=== PATIENT | male | born 1960 | race Caucasian/White ===

== ENCOUNTER 2020-12-16 15:45 | Observation (INO) | payer BC ==
[2020-12-16 16:14] LABS: CHLORIDE,CL 99 mEq/L (98-106); SODIUM,NA 136 mEq/L (136-145)
[2020-12-16] MEDS ORDERED: Sodium Chloride 0.9% 10 ML Syringe FLUSH PRN (17:14)
[2020-12-16] MEDS ORDERED: Acetaminophen 325 MG Tab PO PRN (17:14)
[2020-12-16] MEDS ORDERED: Diltiazem 25 MG/5 ML SDV IVPUSH ONE (17:17)
[2020-12-16] MEDS ORDERED: Enoxaparin 40 MG/0.4 ML Syringe SUBCUT SCH (17:30)
[2020-12-16] MEDS ORDERED: Metoprolol Tartrate 50 MG Tab PO SCH (18:00)
[2020-12-16] MEDS: Acetaminophen 325 MG Tab PO SCH (19:41)
[2020-12-17] MEDS: Acetaminophen 325 MG Tab PO SCH (07:35)
[2020-12-17] MEDS ORDERED: [UNRECOGNIZED DRUG - OTHER] PO SCH (08:00)
[2020-12-17] MEDS ORDERED: METFORMIN HCL PO SCH (08:00)
[2020-12-17] MEDS ORDERED: Aspirin 325 MG Tab PO SCH (08:00)
[2020-12-17] MEDS ORDERED: DAPAGLIFLOZIN PO SCH (08:00)
[2020-12-17] MEDS ORDERED: Metoprolol Tartrate 50 MG Tab PO SCH (08:00)
[2020-12-17] MEDS ORDERED: levETIRAcetam 500 MG Tab PO SCH (08:00)
--- NOTE | 2020-12-19 22:42 | PCM.DCSUM1 ---
Discharge Summary - Hospital Course HPI Initial Comments: Kyle is a 60 yo male who was admitted to the hospital yesterday after being found to be in atrial flutter. Patient admitted he didn't feel well yesterday and was going to come into town to get his prescription medications. States he checked his blood pressure at the pharmacy and found his heart rate was really high. Was seen in clinic and admitted to the hospital. Diagnosis: Stroke: No - Discharge Data Discharge Date: 12/17/20 Discharge Disposition: Home, Self-Care 01 Condition: Good - Referral to Home Health Primary Care Physician: Meghan Fall PA-C - Discharge Diagnosis/Problem(s) (1) Atrial fib/flutter, transient SNOMED Code(s): 754530777 ICD Code: [id number] - Status: Acute - Patient Instructions Diet: Usual Diet as Tolerated, Diabetic Diet Activity: As Tolerated - Discharge Plan *PRESCRIPTION DRUG MONITORING PROGRAM REVIEWED*: Not Applicable Prescriptions/Med Rec: Aspirin 81 mg PO DAILY #30 tab.chew Metoprolol Succinate 50 mg PO DAILY #30 tab.er.24h Home Medications: Home Meds Dapagliflozin/Metformin HCl [Xigduo Xr 10 mg-1,000 mg Tab] 1 tab PO DAILY 02/14/19 [History] Multivitamin [Multivitamins] 1 tab PO DAILY 02/14/19 [History] Acetaminophen [Tylenol] 650 mg PO BID 12/16/20 [History] Cyanocobalamin (Vitamin B12) [Vitamin B12] 1,000 mcg PO DAILY 12/16/20 [History] amLODIPine Besylate [Amlodipine Besylate] 10 mg PO DAILY 12/16/20 [History] levETIRAcetam [Levetiracetam] 750 mg PO QAM 12/16/20 [History] Aspirin 81 mg PO DAILY #30 tab.chew 12/17/20 [Rx] Metoprolol Succinate 50 mg PO DAILY #30 tab.er.24h 12/17/20 [Rx] Oxygen Therapy Mode: Room Air Patient Handouts: Atrial Flutter - Discharge Summary/Plan Comment DC Time >30 min.: No Discharge Summary/Plan Comment: Kyle has been asymptomatic in the hospital. Patient was started on Metoprol Tartrate 50mg BID while in the hospital. Patient admits he has not felt any palpitations or signs of atrial flutter again. Discussed anticoagulation with Dr. Majano. Patient has had prior history of subdural hematomas and will refrain from anticoagulation. Echocardiogram preliminary did not show any embolus. Patient will be on aspirin 81mg daily. Will continue Metoprolol Succinate 50mg daily. Patient will follow up with Meghan Fall, primary provider, next week. - General Info Date of Service: 12/17/20 Functional Status: Reports: Tolerating Diet, Ambulating. Denies: New Symptoms - Review of Systems General: Reports: No Symptoms HEENT: Reports: No Symptoms Pulmonary: Denies: Shortness of Breath Cardiovascular: Denies: Chest Pain, Palpitations, Dyspnea on Exertion, Lightheadedness Gastrointestinal: Reports: No Symptoms Genitourinary: Reports: No Symptoms Musculoskeletal: Reports: No Symptoms Skin: Reports: No Symptoms Neurological: Reports: No Symptoms - Patient Data Vitals - Most Recent: Last Vital Signs Temp 97.6 F 12/17/20 12:00 Pulse 90 12/17/20 12:00 Resp 18 12/17/20 12:00 BP 135/76 12/17/20 12:00 Pulse Ox 97 12/17/20 12:00 Weight - Most Recent: 252 lb 14.4 oz Med Orders - Current: Current Medications Discontinued Medications Acetaminophen (Tylenol) 650 mg PO Q4H PRN PRN Reason: Pain (Mild 1-3)/fever Acetaminophen (Tylenol) 650 mg PO BID [facility] Last Admin: 12/17/20 07:35 Dose: 650 mg Documented by: Aspirin (Aspirin) 325 mg PO WITHBREAKFAST [facility] Last Admin: 12/17/20 07:35 Dose: 325 mg Documented by: Diltiazem HCl (Diltiazem) 10 mg IVPUSH ONETIME ONE Stop: 12/16/20 17:18 Last Admin: 12/16/20 17:30 Dose: Not Given Documented by: Enoxaparin Sodium (Lovenox) 40 mg SUBCUT Q24H [facility] Last Admin: 12/16/20 18:06 Dose: 40 mg Documented by: Levetiracetam (Keppra) 750 mg PO QAM [facility] Last Admin: 12/17/20 07:35 Dose: 750 mg Documented by: Metoprolol Tartrate (Lopressor) 50 mg PO Q12H [facility] Last Admin: 12/17/20 07:36 Dose: 50 mg Documented by: Metoprolol Tartrate (Lopressor) 50 mg PO ONETIME [facility] Last Admin: 12/16/20 18:06 Dose: 50 mg Documented by: Non-Formulary Medication (Dapagliflozin/Metformin Hcl [Xigduo Xr 10 Mg-1,000 Mg Tab]) 1 tab PO DAILY TOMMY Sodium Chloride (Saline Flush) 10 ml FLUSH ASDIRECTED PRN PRN Reason: Keep Vein Open - Exam General: Reports: Alert, Oriented, Cooperative, No Acute Distress Lungs: Reports: Clear to Auscultation, Normal Respiratory Effort Cardiovascular: Reports: Regular Rate, Regular Rhythm. Denies: Irregular Rhythm GI/Abdominal Exam: Normal Bowel Sounds, Soft, Non-Tender Skin: Reports: Warm, Dry, Intact Neurological: Reports: No New Focal Deficit Psy/Mental Status: Reports: Alert, Normal Affect, Normal Mood
== END 2020-12-17 14:29 | disposition home or self-care (01) ==
LOC: CC.FCMC 15:45 → CC.MS 15:45 → UNDOADMOB 16:48 → CC.MS 17:14
PROVIDERS: ADMIT Physician Assistant Medical; ATTEND Family Medicine
DX: I48.92 Unspecified atrial flutter (principal); R00.0 Tachycardia, unspecified; R51.9 Headache, unspecified; Z79.899 Other long term (current) drug therapy; Z90.49 Acquired absence of other specified parts of digestive tract; Z79.82 Long term (current) use of aspirin; Z20.822 Contact with and (suspected) exposure to COVID-19
CPT/HCPCS: 36415; 80048; 82550; 82962; 83036; 83615; 84484; 85025; 87635; 93005; 93306; A9270; J1650; 96372; G0378; U0002

== ENCOUNTER 2021-01-23 12:30 | Observation (INO) | payer BC ==
--- NOTE | 2021-01-23 12:58 | EDM.PDOC ---
ED HPI GENERAL MEDICAL PROBLEM - General Chief Complaint: Headache Stated Complaint: headache, eye pain Time Seen by Provider: 01/23/21 12:36 Source of Information: Reports: Patient History Limitations: Reports: No Limitations - History of Present Illness INITIAL COMMENTS - FREE TEXT/NARRATIVE: This patient is a pleasant 60 year old male that presents to the ER. Patient reports that yesterday morning about 10am he was out with the cattle. He reports having two cattle down in the trees and he went to bring them up. He reports that tree branches hit his legs, making his feet tangle, and him fall on his right shoulder. Patient reports that when he fell, he did not have loc, n, v, vision changes. He reports he did not have shoulder pain or any pain complaints. He reports that he got right up and went back to getting the cattle. Patient reports during the day yesterday he even went to a libertarian and was fine. Patient reports then at about 2200 last night he was wakened from his sleep with a headache to the right frontal head. He report also having a right temporal headache. He reports that he took a Jovany ASA at that time, then at 3am took another Jovany ASA. He report at 3am he started to have an increase in pain to the right frontal head, right temporal, and right eye. He reports at that time he started having blurry vision in his right eye. Patient reports that he has not lost vision, but its blurry to the right eye. Patient reports that he continues to have a headache, temporal pain, right eye pain, right eye vision blurriness that has not improved. Patient reports light making headache worse. Patient reports that he has only had a headache like this one other time and it was when he had a head bleed. Patient denies n, v, diarrhea, fever, cough, chest pain, shortness of breath. Patient denies any unilateral weaknesses. GCS 15.Patient does report runny nose for 3 days. Onset Date: 01/22/21 Onset Time: 10:00 Location: Reports: Head Quality: Reports: Throbbing Severity: Moderate Improves with: Reports: None Worsens with: Reports: None Associated Symptoms: Reports: Headaches. Denies: Confusion, Chest Pain, Cough, cough w sputum, Diaphoresis, Fever/Chills, Loss of Appetite, Malaise, Nausea/Vomiting, Rash, Seizure, Shortness of Breath, Syncope, Weakness Treatments FRIEND OF THE COURT: Reports: Aspirin Right Temporal Headache Pain Score (Numeric/FACES): 6 - Related Data Allergies Allergy/AdvReac Type Severity Reaction Status Date / Time No Known Allergies Allergy Verified 01/23/21 13:33 Home Meds: Home Meds Dapagliflozin/Metformin HCl [Xigduo Xr 10 mg-1,000 mg Tab] 1 tab PO DAILY 02/14/19 [History] Multivitamin [Multivitamins] 1 tab PO DAILY 02/14/19 [History] Acetaminophen [Tylenol] 325 mg PO BID PRN 12/16/20 [History] Cyanocobalamin (Vitamin B12) [Vitamin B12] 1,000 mcg PO DAILY 12/16/20 [History] amLODIPine Besylate [Amlodipine Besylate] 5 mg PO DAILY 12/16/20 [History] levETIRAcetam [Levetiracetam] 750 mg PO QAM 12/16/20 [History] Aspirin 81 mg PO DAILY #30 tab.chew 12/17/20 [Rx] Metoprolol Succinate 50 mg PO DAILY #30 tab.er.24h 12/17/20 [Rx] Past Medical History Cardiovascular History: Reports: High Cholesterol, Hypertension, Other (See Below) Other Cardiovascular History: A-flutter Gastrointestinal History: Reports: Other (See Below) Other Gastrointestinal History: L) sided hernia Musculoskeletal History: Reports: None Neurological History: Reports: Brain Injury Endocrine/Metabolic History: Reports: Diabetes, Type II - Past Surgical History Cardiovascular Surgical History: Reports: None GI Surgical History: Reports: Appendectomy Endocrine Surgical History: Reports: None Neurological Surgical History: Reports: C-Spine, Other (See Below) Other Neurological Surgeries/Procedures: Brain surgery Musculoskeletal Surgical History: Reports: Knee Replacement Other Musculoskeletal Surgeries/Procedures:: R) knee surgery ED ROS GENERAL - Review of Systems Review Of Systems: See Below Constitutional: Reports: No Symptoms HEENT: Reports: Eye Pain (Right eye with blurry vision) Respiratory: Reports: No Symptoms Cardiovascular: Reports: No Symptoms Endocrine: Reports: No Symptoms GI/Abdominal: Reports: No Symptoms : Reports: No Symptoms Musculoskeletal: Reports: No Symptoms Skin: Reports: No Symptoms Neurological: Reports: Headache (Right frontal, right temporal, eye eye). Denies: Confusion, Dizziness, Numbness, Paresthesia, Pre-Existing Deficit, Seizure, Syncope, Tingling, Tremors, Trouble Speaking, Difficulty Walking, Weakness, Change in Speech, Gait Disturbance Psychiatric: Reports: No Symptoms Hematologic/Lymphatic: Reports: No Symptoms Immunologic: Reports: No Symptoms - Physical Exam Exam: See Below Exam Limited By: No Limitations General Appearance: Alert, WD/WN, No Apparent Distress, Other (Appears in pain, keeping both eyes closed.) Eye Exam: Bilateral Eye: EOMI, Normal Inspection, PERRL Ears: Normal External Exam, Normal Canal, Hearing Grossly Normal, Normal TMs Nose: Normal Inspection, Normal Mucosa, No Blood Throat/Mouth: Normal Inspection, Normal Lips, Normal Teeth, Normal Gums, Normal Oropharynx, Normal Voice, No Airway Compromise Head Exam: Atraumatic, Normocephalic Neck: Normal Inspection, Supple, Non-Tender, Full Range of Motion Respiratory/Chest: No Respiratory Distress, Lungs Clear, Normal Breath Sounds, No Accessory Muscle Use Cardiovascular: Normal Peripheral Pulses, Regular Rate, Rhythm, No Edema, No Gallop, No JVD, No Murmur, No Rub GI/Abdominal: Normal Bowel Sounds, Soft, Non-Tender, No Organomegaly, No Distention, No Abnormal Bruit, No Mass, Pelvis Stable (Male) Exam: Deferred Rectal (Males) Exam: Deferred Neuro Exam (Abbreviated): Alert, Oriented, CN II-XII Intact (Stroke Score 0: Due to Vision is blurry in right eye, but NO Vision Loss), Normal Cognition, Normal Gait, No Motor/Sensory Deficits Back Exam: Normal Inspection, Full Range of Motion Extremities: Normal Inspection, Normal Range of Motion, Non-Tender, No Pedal Edema, Normal Capillary Refill Psychiatric: Normal Affect, Normal Mood Skin Exam: Warm, Dry, Intact, Normal Color, No Rash #1 Interpretation EKG Date: 01/23/21 Time: 13:13 Rhythm: NSR Rate (Beats/Min): 72 [place]: Normal P-Wave: Present QRS: Normal ST-T: Normal QT: Normal #2 Interpretation EKG Date: 01/23/21 Time: 16:10 Rhythm: NSR Rate (Beats/Min): 73 [place]: Normal P-Wave: Present QRS: Normal ST-T: Normal QT: Normal Comparison: No Change Course - Vital Signs Last Recorded V/S: Last Vital Signs Temp 97.8 F 01/23/21 14:25 Pulse 85 01/23/21 14:25 Resp 20 01/23/21 14:25 BP 129/83 01/23/21 14:25 Pulse Ox 97 01/23/21 14:25 - Orders/Labs/Meds Orders: Active Orders 24 hr Category Date Time Status Cervical Spine wo Cont [CT] Stat Exams 01/23/21 12:33 Taken Head wo Cont [CT] Stat Exams 01/23/21 12:33 Taken Max Facial Sinus wo Cont [CT] Stat Exams 01/23/21 12:46 Taken Medication Orders Acetaminophen (Tylenol) 325 mg PO BID PRN PRN Reason: Pain Cyanocobalamin (Vitamin B12) 1,000 mcg PO DAILY TOMMY Morphine Sulfate (Morphine) 2 mg IVPUSH Q2H PRN PRN Reason: Pain (severe 7-10) Non-Formulary Medication (Amlodipine Besylate [Amlodipine Besylate]) 5 mg PO DAILY TOMMY Non-Formulary Medication (Dapagliflozin/Metformin Hcl [Xigduo Xr 10 Mg-1,000 Mg Tab]) 1 tab PO DAILY TOMMY Non-Formulary Medication (Levetiracetam [Levetiracetam]) 750 mg PO QAM TOMMY Non-Formulary Medication (Metoprolol Succinate [Metoprolol Succinate]) 50 mg PO DAILY TOMMY Ondansetron HCl (Zofran) 4 mg IV Q6H PRN PRN Reason: Nausea/Vomiting Labs: Laboratory Tests 01/23/21 01/23/21 01/23/21 Range/Units 13:07 13:07 13:07 WBC 5.9 (5.0-10.0) 10^3/uL RBC 4.80 (4.50-6.00) 10^6/uL Hgb 13.9 L (14.0-18.0) g/dL Hct 41.7 (40.0-54.0) % MCV 86.9 (82.0-94.0) fL MCH 29.0 (27.0-32.0) pg MCHC 33.3 (33.0-38.0) g/dL RDW Coeff of Chaya 13.7 (11.0-15.0) % Plt Count 264 (150-400) 10^3/uL Neut % (Auto) 68.2 (35-85) % Lymph % (Auto) 19.8 (10-55) % [place] % (Auto) 8.1 (0-16) % Eos % (Auto) 3.4 (0-5) % Baso % (Auto) 0.5 (0-3) % Neut # (Auto) 4.03 (1.80-7.00) 10^3/uL Lymph # (Auto) 1.17 (1.00-4.80) 10^3/uL [place] # (Auto) 0.48 (0.00-0.80) 10^3/uL Eos # (Auto) 0.20 (0.00-0.45) 10^3/uL Baso # (Auto) 0.03 10^3/uL PT 10.0 (9.7-12.3) SEC INR 0.99 (0.92-1.18) Sodium 141 (136-145) mEq/L Potassium 4.6 D (3.5-5.0) mEq/L Chloride 103 (98-106) mEq/L Carbon Dioxide 29 (21-32) mmol/L BUN 11 (7-18) mg/dL Creatinine 1.1 (0.7-1.3) mg/dL Est Cr Clr Drug Dosing 70.82 mL/min Estimated GFR (MDRD) > 60 (>=60) mL/min Glucose 152 H D (75-99) mg/dL Lactic Acid (0.4-2.0) mmol/L Calcium 9.1 (8.4-10.1) mg/dL Total Bilirubin 0.4 (0.0-1.0) mg/dL AST 19 (15-37) U/L ALT 20 (12-78) U/L Alkaline Phosphatase 68 (46-116) U/L Lactate Dehydrogenase 158 (100-190) U/L Creatine Kinase 56 (35-232) U/L Troponin I < 0.017 (0.00-0.06) ng/mL C-Reactive Protein 2.6 H (0.2-0.8) mg/dL Total Protein 8.0 (6.4-8.2) g/dL Albumin 3.6 (3.4-5.0) g/dL 01/23/21 Range/Units 13:07 WBC (5.0-10.0) 10^3/uL RBC (4.50-6.00) 10^6/uL Hgb (14.0-18.0) g/dL Hct (40.0-54.0) % MCV (82.0-94.0) fL MCH (27.0-32.0) pg MCHC (33.0-38.0) g/dL RDW Coeff of Chaya (11.0-15.0) % Plt Count (150-400) 10^3/uL Neut % (Auto) (35-85) % Lymph % (Auto) (10-55) % [place] % (Auto) (0-16) % Eos % (Auto) (0-5) % Baso % (Auto) (0-3) % Neut # (Auto) (1.80-7.00) 10^3/uL Lymph # (Auto) (1.00-4.80) 10^3/uL [place] # (Auto) (0.00-0.80) 10^3/uL Eos # (Auto) (0.00-0.45) 10^3/uL Baso # (Auto) 10^3/uL PT (9.7-12.3) SEC INR (0.92-1.18) Sodium (136-145) mEq/L Potassium (3.5-5.0) mEq/L Chloride (98-106) mEq/L Carbon Dioxide (21-32) mmol/L BUN (7-18) mg/dL Creatinine (0.7-1.3) mg/dL Est Cr Clr Drug Dosing mL/min Estimated GFR (MDRD) (>=60) mL/min Glucose (75-99) mg/dL Lactic Acid 1.0 (0.4-2.0) mmol/L Calcium (8.4-10.1) mg/dL Total Bilirubin (0.0-1.0) mg/dL AST (15-37) U/L ALT (12-78) U/L Alkaline Phosphatase (46-116) U/L Lactate Dehydrogenase (100-190) U/L Creatine Kinase (35-232) U/L Troponin I (0.00-0.06) ng/mL C-Reactive Protein (0.2-0.8) mg/dL Total Protein (6.4-8.2) g/dL Albumin (3.4-5.0) g/dL Meds: Medications Generic Name Dose Route Start Last Admin Trade Name Freq PRN Reason Stop Dose Admin Acetaminophen 325 mg 01/23/21 16:11 Tylenol PO BID PRN Pain Cyanocobalamin 1,000 mcg 01/24/21 08:00 Vitamin B12 PO DAILY TOMMY Morphine Sulfate 2 mg 01/23/21 16:11 Morphine IVPUSH Q2H PRN Pain (severe 7-10) Non-Formulary Medication 5 mg 01/24/21 08:00 Amlodipine Besylate [Amlodipine Besylate] PO DAILY TOMMY Non-Formulary Medication 1 tab 01/24/21 08:00 Dapagliflozin/Metformin Hcl [Xigduo Xr 10 Mg-1,000 Mg Tab] PO DAILY TOMMY Non-Formulary Medication 750 mg 01/24/21 08:00 Levetiracetam [Levetiracetam] PO QAM TOMMY Non-Formulary Medication 50 mg 01/24/21 08:00 Metoprolol Succinate [Metoprolol Succinate] PO DAILY TOMMY Ondansetron HCl 4 mg 01/23/21 16:11 Zofran IV Q6H PRN Nausea/Vomiting Discontinued Medications Generic Name Dose Route Start Last Admin Trade Name Freq PRN Reason Stop Dose Admin Morphine Sulfate 4 mg 01/23/21 14:08 01/23/21 14:32 Morphine IVPUSH 01/23/21 14:09 4 mg ONETIME ONE Administration Morphine Sulfate 4 mg 01/23/21 14:15 01/23/21 14:32 Morphine IVPUSH 01/23/21 14:16 Not Given ONETIME ONE Ondansetron HCl 4 mg 01/23/21 14:15 01/23/21 14:28 Zofran IVPUSH 01/23/21 14:16 4 mg NOW STA Administration - Radiology Interpretation Free Text/Narrative:: Head, Cervical, Facial CT without contrast: No acute findings, no hemorrhage, no shift, no fractures. CT Results Date: 01/23/21 CT Results Time: 13:45 - Re-Assessments/Exams Free Text/Narrative Re-Assessment/Exam: 01/23/21 13:49 Patient currently is sitting up in the stretcher and at times has stood without difficulty. Patient is talking with RN, eyes open, does not appear in distress. Visual acuity performed, bilateral eyes do have 20/20 vision. 01/23/21 14:00 I called and spoke to Dr. Cladue Cam about this patient due to patient history and his presentation. He reports need to transfer patient due to needing further workup of possible MRI and Lumbar puncture to rule out possible subdural not seen on CT. Opth for possible giant cell arteritis. I will transfer this patient. Will now treat patient pain as he has now agreed for treatment. Ill avoid NSAID, will use Morphine and Zofran. I then discussed all results and plan with patient and transfer risk vs benefits. He has agreed to transfer. 01/23/21 14:10 Called [facility] to speak to hospitalist to transfer patient. They will call back when hospitalist is available. 01/23/21 14:41 Patient reports now his headache is gone after Morphine. 01/23/21 14:[address] Villalobos hospitalist at [facility] about this patient. He reports that the patient does not need further workup. He reports he is Not accepting the patient. He reports he will call neurosurgeon building insulation installer and see if they would like to accept the patient. [facility] will call me back. 01/23/[address] Delacruz neurosurgeon from [facility] called back. He reports the ct scan does not show blood on scan. He reports there is no reason to transfer this patient. He reports the patient needs to see plate grainer apprentice, but it is not emergent to do so. He reports can see tomorrow. He reports no reason for an LP. He reports to tell patient to stop taking ASA. 01/23/21 15:[address] Claude Cam back about this patient and reported to him that [facility] Dr. Villalobos and Dr. Delacruz have denied accepting the patient and report patient can be discharged. Dr. Arce disagrees and reports the patient should have been transferred to higher level of care at [facility] where he had his previous subdurals. Dr. Arce reports to discharge patient home and have patient return for any change in condition or neurological changes. He reports to have patient see plate grainer apprentice tomorrow. We further discussed admitting patient here for observation and doing neuro checks instead of discharging home. Dr. Arce reports this is appropriate. So, I will admit the patient here observation. Will have neuro checks performed. If patient neurologically intact tomorrow morning, may be discharged to plate grainer apprentice. Then will see PCP for further evaluation. 01/23/21 15:45 I spent 20 minutes with patient discussing my discussions with Dr. Arce, Dr. Villalobos, and Dr. Delacruz. Patient does report he would feel safer staying in the hospital over night to ensure he is neurologically okay. Patient while I entered the room, reported he had tight substernal chest pain that lasted a couple of seconds. He denies radiation of pain, shortness of breath, nausea, radiation or pain, or any other complaints. Reports his headache has resolved. Will do a repeat troponin in 4 hours. EKG ordered. Will admit observation. Departure - Departure Time of Disposition: 16:00 Disposition: Refer to Observation Condition: Fair Clinical Impression: Headache Qualifiers: Headache type: unspecified Headache chronicity pattern: acute headache Intractability: intractable Qualified Code(s): R51.9 - Headache, unspecified Chest pain Qualifiers: Chest pain type: unspecified Qualified Code(s): R07.9 - Chest pain, unspecified - Discharge Information *PRESCRIPTION DRUG MONITORING PROGRAM REVIEWED*: Not Applicable *COPY OF PRESCRIPTION DRUG MONITORING REPORT IN PATIENT CEE: Not Applicable Sepsis Event Note (ED) - Evaluation Sepsis Screening Result: No Definite Risk - Focused Exam Vital Signs: Vital Signs Temp Pulse Resp BP Pulse Ox 01/23/21 14:25 97.8 F 85 20 129/83 97 01/23/21 12:51 76 20 134/82 98 01/23/21 12:35 97.2 F 76 20 122/98 H 99 - My Orders Last 24 Hours: My Active Orders 01/23/21 12:33 Cervical Spine wo Cont [CT] Stat Head wo Cont [CT] Stat 01/23/21 12:46 Max Facial Sinus wo Cont [CT] Stat - Assessment/Plan Last 24 Hours: My Active Orders 01/23/21 12:33 Cervical Spine wo Cont [CT] Stat Head wo Cont [CT] Stat 01/23/21 12:46 Max Facial Sinus wo Cont [CT] Stat Plan: PLEASE SEE RN NOTE FOR PFSH. PLEASE USE ER H&P ADMIT H&P
[2021-01-23 13:40] LABS: CHLORIDE,CL 103 mEq/L (98-106); SODIUM,NA 141 mEq/L (136-145)
[2021-01-23] MEDS ORDERED: Morphine 4 MG/ML VIAL IVPUSH ONE ×2 (14:08→14:15)
[2021-01-23] MEDS ORDERED: Ondansetron 4 MG/2 ML SDV IVPUSH STA (14:15)
[2021-01-23] MEDS ORDERED: Ondansetron 4 MG/2 ML SDV IV PRN (16:11)
[2021-01-23] MEDS ORDERED: Morphine 2 MG/ML SYRINGE IVPUSH PRN (16:11)
[2021-01-23] MEDS: Acetaminophen 325 MG Tab PO PRN (19:58)
[2021-01-23] MEDS ORDERED: XIGDUO PO SCH (20:00)
[2021-01-23] MEDS ORDERED: LEVETIRACETAM 1000 MG PO SCH (20:00)
[2021-01-24 07:41] LABS: CHLORIDE,CL 102 mEq/L (98-106); SODIUM,NA 138 mEq/L (136-145)
[2021-01-24] MEDS: Acetaminophen 325 MG Tab PO PRN (07:52)
[2021-01-24] MEDS ORDERED: Cyanocobalamin (Vitamin B12) 1,000 MCG Tab PO SCH (08:00)
[2021-01-24] MEDS ORDERED: METOPROLOL SUCC 50 MG PO SCH (08:00)
[2021-01-24] MEDS ORDERED: AMLODIPINE 5 MG PO SCH (08:00)
[2021-01-24] MEDS ORDERED: LEVETIRACETAM 750 MG PO SCH (08:00)
--- NOTE | 2021-01-24 09:41 | PCM.DCSUM1 ---
Discharge Summary - Hospital Course HPI Initial Comments: Kyle is a 60 yo with PMH of brain bleed who was admitted to the hospital yesterday with right sided headache and blurry vision. He reports headache resolved with morphine. He reports his blurry vision has also resolved. He is feeling well this morning and does not have any complaints. He reports he did have very short episode of chest pain, lasting approximately 1 minute, but this has also resolved. Lab and CT were unremarkable. Neuro exam remain normal. Patient will be discharged home, with follow up optometry appointment tomorrow at 8 am. - Discharge Data Discharge Date: 01/24/21 Discharge Disposition: Home, Self-Care Condition: Good - Referral to Home Health Primary Care Physician: PCP None - Patient Instructions Diet: Usual Diet as Tolerated Activity: As Tolerated Notify Provider of: Fever, Increased Pain, Swelling and Redness, Drainage, Nausea and/or Vomiting - Discharge Plan *PRESCRIPTION DRUG MONITORING PROGRAM REVIEWED*: Not Applicable *COPY OF PRESCRIPTION DRUG MONITORING REPORT IN PATIENT CEE: Not Applicable Home Medications: Home Meds Dapagliflozin/Metformin HCl [Xigduo Xr 10 mg-1,000 mg Tab] 1 tab PO DAILY 02/14 [History] Multivitamin [Multivitamins] 1 tab PO DAILY 02/14/19 [History] Acetaminophen [Tylenol] 325 mg PO BID PRN 12/16/20 [History] Cyanocobalamin (Vitamin B12) [Vitamin B12] 1,000 mcg PO DAILY 12/16/20 [History] amLODIPine Besylate [Amlodipine Besylate] 5 mg PO DAILY 12/16/20 [History] levETIRAcetam [Levetiracetam] 750 mg PO QAM 12/16/20 [History] Aspirin 81 mg PO DAILY #30 tab.chew 12/17/20 [Rx] Metoprolol Succinate 50 mg PO DAILY #30 tab.er.24h 12/17/20 [Rx] Patient Handouts: Nonspecific Chest Pain, Adult, [id number] Forms: ED Department Discharge Referrals: Meghan Fall PA-C [ED Midlevel Provider] - - Discharge Summary/Plan Comment DC Time >30 min.: No - General Info Date of Service: 01/24/21 Admission Dx/Problem (Free Text: Chest Pain Headache Blurry Vision, Right Subjective Update: Patient reports feeling well this morning. All previous symptoms have resolved and he has no complaints. Functional Status: Reports: Pain Controlled, Tolerating Diet, Ambulating, Urinating. Denies: New Symptoms - Review of Systems General: Reports: No Symptoms HEENT: Reports: No Symptoms Pulmonary: Reports: No Symptoms Cardiovascular: Reports: No Symptoms Gastrointestinal: Reports: No Symptoms Genitourinary: Reports: No Symptoms Musculoskeletal: Reports: No Symptoms Skin: Reports: No Symptoms Neurological: Reports: No Symptoms Psychiatric: Reports: No Symptoms - Patient Data Vitals - Most Recent: Last Vital Signs Temp 97.5 F 01/24/21 07:58 Pulse 81 01/24/21 07:58 Resp 18 01/24/21 07:58 BP 135/81 01/24/21 07:58 Pulse Ox 97 01/24/21 07:58 Weight - Most Recent: 252 lb 3.2 oz Lab Results - Last 24 hrs: Laboratory Results - last 24 hr 01/23/21 01/23/21 01/23/21 Range/Units 13:07 13:07 13:07 WBC 5.9 (5.0-10.0) 10^3/uL RBC 4.80 (4.50-6.00) 10^6/uL Hgb 13.9 L (14.0-18.0) g/dL Hct 41.7 (40.0-54.0) % MCV 86.9 (82.0-94.0) fL MCH 29.0 (27.0-32.0) pg MCHC 33.3 (33.0-38.0) g/dL RDW Coeff of Chaya 13.7 (11.0-15.0) % Plt Count 264 (150-400) 10^3/uL Neut % (Auto) 68.2 (35-85) % Lymph % (Auto) 19.8 (10-55) % [place] % (Auto) 8.1 (0-16) % Eos % (Auto) 3.4 (0-5) % Baso % (Auto) 0.5 (0-3) % Neut # (Auto) 4.03 (1.80-7.00) 10^3/uL Lymph # (Auto) 1.17 (1.00-4.80) 10^3/uL [place] # (Auto) 0.48 (0.00-0.80) 10^3/uL Eos # (Auto) 0.20 (0.00-0.45) 10^3/uL Baso # (Auto) 0.03 10^3/uL PT 10.0 (9.7-12.3) SEC INR 0.99 (0.92-1.18) Sodium 141 (136-145) mEq/L Potassium 4.6 D (3.5-5.0) mEq/L Chloride 103 (98-106) mEq/L Carbon Dioxide 29 (21-32) mmol/L BUN 11 (7-18) mg/dL Creatinine 1.1 (0.7-1.3) mg/dL Est Cr Clr Drug Dosing 70.82 mL/min Estimated GFR (MDRD) > 60 (>=60) mL/min Glucose 152 H D (75-99) mg/dL Lactic Acid (0.4-2.0) mmol/L Calcium 9.1 (8.4-10.1) mg/dL Total Bilirubin 0.4 (0.0-1.0) mg/dL AST 19 (15-37) U/L ALT 20 (12-78) U/L Alkaline Phosphatase 68 (46-116) U/L Lactate Dehydrogenase 158 (100-190) U/L Creatine Kinase 56 (35-232) U/L Troponin I < 0.017 (0.00-0.06) ng/mL C-Reactive Protein 2.6 H (0.2-0.8) mg/dL Total Protein 8.0 (6.4-8.2) g/dL Albumin 3.6 (3.4-5.0) g/dL 01/23/21 01/23/21 01/24/21 Range/Units 13:07 20:06 05:11 WBC 6.6 (5.0-10.0) 10^3/uL RBC 5.05 (4.50-6.00) 10^6/uL Hgb 14.6 (14.0-18.0) g/dL Hct 44.2 (40.0-54.0) % MCV 87.5 (82.0-94.0) fL MCH 28.9 (27.0-32.0) pg MCHC 33.0 (33.0-38.0) g/dL RDW Coeff of Chaya 13.5 (11.0-15.0) % Plt Count 261 (150-400) 10^3/uL Neut % (Auto) 68.0 (35-85) % Lymph % (Auto) 20.7 (10-55) % [place] % (Auto) 6.4 (0-16) % Eos % (Auto) 4.1 (0-5) % Baso % (Auto) 0.8 (0-3) % Neut # (Auto) 4.46 (1.80-7.00) 10^3/uL Lymph # (Auto) 1.36 (1.00-4.80) 10^3/uL [place] # (Auto) 0.42 (0.00-0.80) 10^3/uL Eos # (Auto) 0.27 (0.00-0.45) 10^3/uL Baso # (Auto) 0.05 10^3/uL PT (9.7-12.3) SEC INR (0.92-1.18) Sodium (136-145) mEq/L Potassium (3.5-5.0) mEq/L Chloride (98-106) mEq/L Carbon Dioxide (21-32) mmol/L BUN (7-18) mg/dL Creatinine (0.7-1.3) mg/dL Est Cr Clr Drug Dosing mL/min Estimated GFR (MDRD) (>=60) mL/min Glucose (75-99) mg/dL Lactic Acid 1.0 (0.4-2.0) mmol/L Calcium (8.4-10.1) mg/dL Total Bilirubin (0.0-1.0) mg/dL AST (15-37) U/L ALT (12-78) U/L Alkaline Phosphatase (46-116) U/L Lactate Dehydrogenase (100-190) U/L Creatine Kinase (35-232) U/L Troponin I < 0.017 (0.00-0.06) ng/mL C-Reactive Protein (0.2-0.8) mg/dL Total Protein (6.4-8.2) g/dL Albumin (3.4-5.0) g/dL 01/24/21 Range/Units 05:11 WBC (5.0-10.0) 10^3/uL RBC (4.50-6.00) 10^6/uL Hgb (14.0-18.0) g/dL Hct (40.0-54.0) % MCV (82.0-94.0) fL MCH (27.0-32.0) pg MCHC (33.0-38.0) g/dL RDW Coeff of Chaya (11.0-15.0) % Plt Count (150-400) 10^3/uL Neut % (Auto) (35-85) % Lymph % (Auto) (10-55) % [place] % (Auto) (0-16) % Eos % (Auto) (0-5) % Baso % (Auto) (0-3) % Neut # (Auto) (1.80-7.00) 10^3/uL Lymph # (Auto) (1.00-4.80) 10^3/uL [place] # (Auto) (0.00-0.80) 10^3/uL Eos # (Auto) (0.00-0.45) 10^3/uL Baso # (Auto) 10^3/uL PT (9.7-12.3) SEC INR (0.92-1.18) Sodium 138 (136-145) mEq/L Potassium 4.3 (3.5-5.0) mEq/L Chloride 102 (98-106) mEq/L Carbon Dioxide 29 (21-32) mmol/L BUN 11 (7-18) mg/dL Creatinine 1.1 (0.7-1.3) mg/dL Est Cr Clr Drug Dosing 70.82 mL/min Estimated GFR (MDRD) > 60 (>=60) mL/min Glucose 151 H (75-99) mg/dL Lactic Acid (0.4-2.0) mmol/L Calcium 9.1 (8.4-10.1) mg/dL Total Bilirubin (0.0-1.0) mg/dL AST (15-37) U/L ALT (12-78) U/L Alkaline Phosphatase (46-116) U/L Lactate Dehydrogenase (100-190) U/L Creatine Kinase (35-232) U/L Troponin I (0.00-0.06) ng/mL C-Reactive Protein (0.2-0.8) mg/dL Total Protein (6.4-8.2) g/dL Albumin (3.4-5.0) g/dL Med Orders - Current: Current Medications Acetaminophen (Tylenol) 325 mg PO BID PRN PRN Reason: Pain Last Admin: 01/24/21 07:52 Dose: 325 mg Documented by: Cyanocobalamin (Vitamin B12) 1,000 mcg PO DAILY [facility] Last Admin: 01/24/21 07:47 Dose: 1,000 mcg Documented by: Morphine Sulfate (Morphine) 2 mg IVPUSH Q2H PRN PRN Reason: Pain (severe 7-10) Amlodipine 5 Mg (Own Med) 0 mg PO DAILY [facility] Last Admin: 01/24/21 07:47 Dose: 5 mg Documented by: Xigduo Xr 10-1000 (Own Med) 0 tab PO 1999 [facility] Last Admin: 01/23/21 19:55 Dose: 1 tab Documented by: Levetiracetam 750 Mg (Own Med) 0 mg PO QAM [facility] Last Admin: 01/24/21 07:47 Dose: 750 mg Documented by: Metoprolol Succ 50 (MgOwn Med) 0 mg PO DAILY [facility] Last Admin: 01/24/21 07:47 Dose: 50 mg Documented by: Levetiracetam 1000 (Mg Own Med) 0 each PO BEDTIME [facility] Last Admin: 01/23/21 19:54 Dose: 1 each Documented by: Ondansetron HCl (Zofran) 4 mg IV Q6H PRN PRN Reason: Nausea/Vomiting Discontinued Medications Morphine Sulfate (Morphine) 4 mg IVPUSH ONETIME ONE Stop: 01/23/21 14:09 Last Admin: 01/23/21 14:32 Dose: 4 mg Documented by: Morphine Sulfate (Morphine) 4 mg IVPUSH ONETIME ONE Stop: 01/23/21 14:16 Last Admin: 01/23/21 14:32 Dose: Not Given Documented by: Ondansetron HCl (Zofran) 4 mg IVPUSH NOW STA Stop: 01/23/21 14:16 Last Admin: 01/23/21 14:28 Dose: 4 mg Documented by: - Exam Quality Assessment: Reports: DVT Prophylaxis General: Reports: Alert, Oriented, No Acute Distress HEENT: Reports: Pupils Equal, Pupils Reactive, EOMI, Mucous Membr. Moist/[place], Other (visual acuity intact) Neck: Reports: Supple Lungs: Reports: Clear to Auscultation, Normal Respiratory Effort Cardiovascular: Reports: Regular Rate, Regular Rhythm GI/Abdominal Exam: Normal Bowel Sounds, Soft, Non-Tender, No Organomegaly, No Distention, No Abnormal Bruit, No Mass, Pelvis Stable Back Exam: Reports: Normal Inspection, Full Range of Motion Extremities: Normal Inspection, Normal Range of Motion, Non-Tender, No Pedal Edema, Normal Capillary Refill Neurological: Reports: No New Focal Deficit Psy/Mental Status: Reports: Alert, Normal Affect, Normal Mood
== END 2021-01-24 10:15 | disposition home or self-care (01) ==
LOC: CC.ED 12:30 → CC.MS 15:57 → UNDOADMOB 15:57 → CC.MS 16:02
PROVIDERS: ADMIT Nurse Practitioner; ATTEND Family Medicine
DX: R51.9 Headache, unspecified (principal); H53.8 Other visual disturbances; R07.2 Precordial pain; E78.00 Pure hypercholesterolemia, unspecified; I10 Essential (primary) hypertension; E11.9 Type 2 diabetes mellitus without complications; J32.8 Other chronic sinusitis; Z79.82 Long term (current) use of aspirin; Z79.84 Long term (current) use of oral hypoglycemic drugs; Z79.899 Other long term (current) drug therapy
CPT/HCPCS: 36415; 70450; 70486; 72125; 80048; 80053; 82550; 83605; 83615; 84484; 85025; 85610; 86140; 93005; 96374; 96375; 99285-25; A9270-GY; G0378; J2270; J2405

== ENCOUNTER 2021-04-16 13:35 | Emergency (ER) | payer SELFPAY ==
[2021-04-16] MEDS ORDERED: cefTRIAXone 1 GM Vial IM ONE (13:57)
[2021-04-16 14:11] LABS: CHLORIDE,CL 102 mEq/L (98-106); SODIUM,NA 142 mEq/L (136-145)
[2021-04-16] MEDS ORDERED: Take Home: Clindamycin HCl 150 MG Cap, 6 Cap Pack ONE (14:11)
--- NOTE | 2021-04-16 14:19 | EDM.PDOC ---
ED HPI GENERAL MEDICAL PROBLEM - General Chief Complaint: General Stated Complaint: R Foot Pain Time Seen by Provider: 04/16/21 13:45 Source of Information: Reports: Patient History Limitations: Reports: No Limitations - History of Present Illness INITIAL COMMENTS - FREE TEXT/NARRATIVE: Kyle is a 60 year old male who presents to ER with increasing redness and swelling in his foot and calf pain. Had developed a blister/sore area to the lateral 5th toe a week ago. Did see Meghan Fall at that time and was started on Cephalexin BID. Today, notes more pain, especially in his calf and got concerned. Foot is warm and redness is beyond just the toe now. History of diabetes. Denies much for pain in his toe, does have sensation yet per patient. No fevers. No shortness of breath. No history of blood clots. Takes a daily baby ASA. Onset: Gradual Duration: Day(s): Location: Reports: Lower Extremity, Right Quality: Reports: Ache Severity: Moderate Improves with: Reports: Rest Worsens with: Reports: Movement Associated Symptoms: Denies: Confusion, Chest Pain, Cough, Fever/Chills, Loss of Appetite, Nausea/Vomiting, Shortness of Breath, Syncope Treatments DOWEL PIN MAN: Reports: Other Medication(s) Other Treatments DOWEL PIN MAN: cephalexin r foot Pain Score (Numeric/FACES): 5 - Related Data Allergies Allergy/AdvReac Type Severity Reaction Status Date / Time No Known Allergies Allergy Verified 04/16/21 13:43 Home Meds: Home Meds Dapagliflozin/Metformin HCl [Xigduo Xr 10 mg-1,000 mg Tab] 1 tab PO DAILY 02/14/19 [History] Multivitamin [Multivitamins] 1 tab PO DAILY 02/14/19 [History] Acetaminophen [Tylenol] 325 mg PO BID PRN 12/16/20 [History] Cyanocobalamin (Vitamin B12) [Vitamin B12] 1,000 mcg PO DAILY 12/16/20 [History] amLODIPine Besylate [Amlodipine Besylate] 5 mg PO DAILY 12/16/20 [History] levETIRAcetam [Levetiracetam] 750 mg PO QAM 12/16/20 [History] Aspirin 81 mg PO DAILY #30 tab.chew 12/17/20 [Rx] Metoprolol Succinate 50 mg PO DAILY #30 tab.er.24h 12/17/20 [Rx] Past Medical History Cardiovascular History: Reports: High Cholesterol, Hypertension, Other (See Below) Other Cardiovascular History: A-flutter Gastrointestinal History: Reports: Other (See Below) Other Gastrointestinal History: L) sided hernia Musculoskeletal History: Reports: None Neurological History: Reports: Brain Injury Endocrine/Metabolic History: Reports: Diabetes, Type II - Past Surgical History Cardiovascular Surgical History: Reports: None GI Surgical History: Reports: Appendectomy Endocrine Surgical History: Reports: None Neurological Surgical History: Reports: C-Spine, Other (See Below) Other Neurological Surgeries/Procedures: Brain surgery Musculoskeletal Surgical History: Reports: Knee Replacement Other Musculoskeletal Surgeries/Procedures:: R) knee surgery Social & Family History - Family History Family Medical History: No Pertinent Family History - Tobacco Use Tobacco Use Status *Q: Unknown Ever Used Tobacco Second Hand Smoke Exposure: No - Caffeine Use Caffeine Use: Reports: Coffee - Recreational Drug Use Recreational Drug Use: No ED ROS GENERAL - Review of Systems Review Of Systems: See Below Constitutional: Denies: Fever, Chills, Malaise, Weakness, Fatigue HEENT: Denies: Ear Pain, Sinus Problem, Throat Pain Respiratory: Denies: Shortness of Breath, Cough Cardiovascular: Reports: Edema (right calf). Denies: Chest Pain, Lightheadedness Endocrine: Denies: Fatigue GI/Abdominal: Denies: Abdominal Pain, Nausea, Vomiting : Reports: No Symptoms Musculoskeletal: Reports: Leg Pain Skin: Reports: Erythema, Wound (sore to right 5th toe) Neurological: Reports: No Symptoms Psychiatric: Reports: No Symptoms ED EXAM, GENERAL - Physical Exam Exam: See Below Exam Limited By: No Limitations General Appearance: Alert, WD/WN, No Apparent Distress Ears: Normal External Exam, Normal TMs Nose: Normal Inspection, Normal Mucosa, No Blood Throat/Mouth: Normal Inspection, Normal Oropharynx Head: Normocephalic Neck: Normal Inspection, Supple, Non-Tender Respiratory/Chest: No Respiratory Distress, Lungs Clear, Normal Breath Sounds Cardiovascular: Regular Rate, Rhythm Extremities: Other (right calf has obvious varicose veins. Tender to posterior calf. No redness in that area. Right foot is red, warm and mildly swollen as well. Swelling noted in right calf versus left. ) Neurological: Alert, Oriented Course - Vital Signs Last Recorded V/S: Last Vital Signs Temp 97.3 F 04/16/21 13:35 Pulse 90 04/16/21 13:35 Resp 14 04/16/21 13:35 BP 142/85 H 04/16/21 13:35 Pulse Ox 97 04/16/21 13:35 - Orders/Labs/Meds Orders: Active Orders 24 hr Category Date Time Status clindamycin HCL [Take Home: Clindamycin HCl 150 MG, 6 Med 04/16/21 14:25 Once Cap Pack] 2 packet PO ONETIME ONE Labs: Laboratory Tests 04/16/21 04/16/21 04/16/21 Range/Units 13:42 13:42 13:42 WBC 6.8 (5.0-10.0) 10^3/uL RBC 5.00 (4.50-6.00) 10^6/uL Hgb 14.7 (14.0-18.0) g/dL Hct 42.8 (40.0-54.0) % MCV 85.6 (82.0-94.0) fL MCH 29.4 (27.0-32.0) pg MCHC 34.3 (33.0-38.0) g/dL RDW Coeff of Chaya 13.2 (11.0-15.0) % Plt Count 267 (150-400) 10^3/uL Neut % (Auto) 74.8 (35-85) % Lymph % (Auto) 15.1 (10-55) % [place] % (Auto) 5.8 (0-16) % Eos % (Auto) 3.4 (0-5) % Baso % (Auto) 0.9 (0-3) % Neut # (Auto) 5.05 (1.80-7.00) 10^3/uL Lymph # (Auto) 1.02 (1.00-4.80) 10^3/uL [place] # (Auto) 0.39 (0.00-0.80) 10^3/uL Eos # (Auto) 0.23 (0.00-0.45) 10^3/uL Baso # (Auto) 0.06 10^3/uL D-Dimer, Quantitative 0.36 (0.00-0.50) Sodium 142 (136-145) mEq/L Potassium 4.3 (3.5-5.0) mEq/L Chloride 102 (98-106) mEq/L Carbon Dioxide 29 (21-32) mmol/L BUN 10 (7-18) mg/dL Creatinine 1.0 (0.7-1.3) mg/dL Est Cr Clr Drug Dosing 77.90 mL/min Estimated GFR (MDRD) > 60 (>=60) mL/min Glucose 264 H D (75-99) mg/dL Calcium 8.6 (8.4-10.1) mg/dL Magnesium 1.8 (1.8-2.4) mg/dL Total Bilirubin 0.2 (0.0-1.0) mg/dL AST 16 (15-37) U/L ALT 28 (12-78) U/L Alkaline Phosphatase 90 (46-116) U/L C-Reactive Protein 0.6 (0.2-0.8) mg/dL Total Protein 7.7 (6.4-8.2) g/dL Albumin 3.3 L (3.4-5.0) g/dL Meds: Medications Discontinued Medications Generic Name Dose Route Start Last Admin Trade Name Freq PRN Reason Stop Dose Admin Ceftriaxone Sodium 1 gm 04/16/21 13:57 04/16/21 14:00 Ceftriaxone 1 Gm Vial IM 04/16/21 13:58 1 gm ONETIME ONE Administration - Re-Assessments/Exams Free Text/Narrative Re-Assessment/Exam: 04/16/21 14:26 Labs are all unremarkable. No evidence of clot. Will switch patient to Cleocin QID Departure - Departure Time of Disposition: 14:26 Disposition: Home, Self-Care 01 Condition: Fair Clinical Impression: Cellulitis - Discharge Information *PRESCRIPTION DRUG MONITORING PROGRAM REVIEWED*: No *COPY OF PRESCRIPTION DRUG MONITORING REPORT IN PATIENT CEE: No Instructions: Cellulitis, Adult, [id number] Referrals: Meghan Fall PA-C [Primary Care Provider] - Forms: ED Department Discharge Additional Instructions: 1. Keep wound clean and dry with wet to dry dressings 2. Elevate leg frequently through day 3. Clindamycin 300 mg four times a day 4. Stop Cephalexin 5. If start to run a fever, increased redness up leg or more pain, may need to return for hospitalization for IV antibiotics and wound care Sepsis Event Note (ED) - Evaluation Sepsis Screening Result: No Definite Risk - Focused Exam Vital Signs: Vital Signs Temp Pulse Resp BP Pulse Ox 04/16/21 13:35 97.3 F 90 14 142/85 H 97 - My Orders Last 24 Hours: My Active Orders 04/16/21 14:25 clindamycin HCL [Take Home: Clindamycin HCl 150 MG, 6 Cap Pack] 2 packet PO ONETIME ONE - Assessment/Plan Last 24 Hours: My Active Orders 04/16/21 14:25 clindamycin HCL [Take Home: Clindamycin HCl 150 MG, 6 Cap Pack] 2 packet PO ONETIME ONE
[2021-04-16] MEDS ORDERED: Take Home: Clindamycin HCl 150 MG Cap, 6 Cap Pack PO ONE (14:25)
== END 2021-04-16 14:43 | disposition home or self-care (01) ==
LOC: CC.ED 13:35
DX: L03.115 Cellulitis of right lower limb (principal); I10 Essential (primary) hypertension; E11.9 Type 2 diabetes mellitus without complications; Z79.82 Long term (current) use of aspirin; Z79.899 Other long term (current) drug therapy
CPT/HCPCS: 36415; 80053; 83735; 85025; 85379; 86140; 96372; 99283; A9270; J0696

== ENCOUNTER 2022-05-17 14:23 | Emergency (ER) | payer BC ==
[2022-05-17 14:43] VITALS: PULSE 96
[2022-05-17 15:13] LABS: CHLORIDE,CL 102 mEq/L (98-106); ESTIMATED GFR 63 mL/min (>=60); SODIUM,NA 140 mEq/L (136-145)
[2022-05-17] MEDS: Ondansetron 4 MG/2 ML SDV IVPUSH STA (15:13)
[2022-05-17] MEDS: Meclizine 12.5 MG Tab PO STA (15:51)
[2022-05-17 16:08] VITALS: BP 110/52
[2022-05-17] MEDS: Take Home: Meclizine 12.5 MG Tab, 4 Tab Pack PO ONE (17:27)
== END 2022-05-17 17:33 | disposition home or self-care (01) ==
LOC: CC.ED 14:23
DX: R42 Dizziness and giddiness (principal); E11.9 Type 2 diabetes mellitus without complications; E78.00 Pure hypercholesterolemia, unspecified; I10 Essential (primary) hypertension; Z79.899 Other long term (current) drug therapy; Z20.822 Contact with and (suspected) exposure to COVID-19
CPT/HCPCS: 36415; 70450; 71046; 80053; 81001; 82947; 84484; 85025; 85379; 86140; 87804; 93005; 96374; 99284; 99284-25; A9270-GY; J2405; U0002

== ENCOUNTER 2024-08-03 11:31 | Emergency (ER) | payer BC ==
[2024-08-03] MEDS ORDERED: Naloxone 2 MG/2 ML Syringe IVPUSH PRN (12:01)
[2024-08-03] MEDS: Diphtheria,Pertussis(Acell),Tetanus Vaccine 0.5 ML Syringe IM ONE (12:36)
[2024-08-03] MEDS: Ondansetron 4 MG/2 ML SDV IVPUSH STA (12:36)
[2024-08-03] MEDS: ceFAZolin 2 GM Vial IVPUSH ONE (12:36)
[2024-08-03] MEDS: HYDROmorphone 0.5 MG/0.5 ML Syringe IVPUSH ONE ×2 (12:37→12:44)
[2024-08-03 12:40] LABS: BASOPHILS ABSOLUTE AUTO 0.06 10^3/uL (0.00-0.50); BASOPHILS PERCENT AUTO 0.9 % (0-1); EOSINOPHILS ABSOLUTE AUTO 0.15 10^3/uL (0.00-1.50); EOSINOPHILS PERCENT AUTO 2.3 % (0-6); HEMATOCRIT 41.8 % (42.0-52.0); HEMOGLOBIN 14.4 g/dL (14.0-18.0); IMMATURE GRAN ABSOLUTE AUTO 0.01 10^3/uL (0.00-0.49); IMMATURE GRAN PERCENT AUTO 0.2 % (0.0-4.9); LYMPHOCYTES ABSOLUTE AUTO 1.17 10^3/uL (0.60-5.00); LYMPHOCYTES PERCENT AUTO 17.9 % (24-44); MEAN CORPUSCULAR HGB CONC 34.4 g/dL (32.0-36.0); MEAN CORPUSCULAR VOLUME 84.3 fL (83.0-97.0); MONOCYTES ABSOLUTE AUTO 0.46 10^3/uL (0.00-1.50); NEUTROPHILS ABSOLUTE AUTO 4.68 x10^3/uL (1.80-8.00); NEUTROPHILS PERCENT AUTO 71.7 % (41-71); PLATELET COUNT,PLT 218 10^3/uL (150-400); RED BLOOD CELL COUNT 4.96 x10^6/uL (4.50-6.00); WHITE BLOOD CELL COUNT,WBC 6.5 10^3/uL (4.0-11.0)
[2024-08-03 12:55] LABS: BLOOD UREA NITROGEN,BUN 5 mg/dL (7-18); CARBON DIOXIDE,CO2 25 mmol/L (21-32); CHLORIDE,CL 97 mEq/L (98-106); CREATININE 1.2 mg/dL (0.7-1.3); POTASSIUM,K 3.8 mEq/L (3.5-5.0); SODIUM,NA 137 mEq/L (136-145)
[2024-08-03 12:56] LABS: ALANINE AMINOTRANSFERASE,ALT 19 U/L (12-78); ALBUMIN 3.9 g/dL (3.4-5.0); ALKALINE PHOSPHATASE 79 U/L (46-116); ASPARTATE AMNIOTRANSFERASE,AST 24 U/L (15-37); BILIRUBIN TOTAL 0.4 mg/dL (0.0-1.0); C-REACTIVE PROTEIN < 0.50 mg/dL (<=0.50); CALCIUM 9.1 mg/dL (8.4-10.1); EST CRCL DRUG DOSING (CG) 62.54 mL/min; ESTIMATED GFR 69 mL/min (>=60); PROTEIN TOTAL,TP 7.4 g/dL (6.4-8.2)
[2024-08-03 12:57] LABS: GLUCOSE RANDOM 332 mg/dL (75-99)
[2024-08-03] MEDS: Pantoprazole 40 MG Vial IVPUSH ONE (12:59)
== END 2024-08-03 15:15 ==
LOC: CC.ED 11:31
DX: S68.111A Complete traumatic metacarpophalangeal amputation of left index finger, initial encounter (principal); S68.113A Complete traumatic metacarpophalangeal amputation of left middle finger, initial encounter; R07.9 Chest pain, unspecified; I10 Essential (primary) hypertension; E78.00 Pure hypercholesterolemia, unspecified; E11.9 Type 2 diabetes mellitus without complications; Z79.899 Other long term (current) drug therapy; Z86.16 Personal history of COVID-19; W23.0XXA Caught, crushed, jammed, or pinched between moving objects, initial encounter; Y93.89 Activity, other specified
CPT/HCPCS: 36415; 73130-LT; 80053; 84484; 85025; 86140; 90471; 90715; 93005; 93010; 96374; 96375; 99284; 99285-25; J0690; J1170; J2405; J2470

== ENCOUNTER 2024-10-20 04:08 | Emergency (ER) | payer BC ==
[2024-10-20] MEDS: Acetaminophen/HYDROcodone 325-5 MG Tab PO ONE (05:26)
[2024-10-20] MEDS: Ketorolac 30 MG/ML SDV IM ONE (05:30)
[2024-10-20] MEDS: Orphenadrine 60 MG/2 ML Inj IM ONE (05:34)
== END 2024-10-20 05:55 | disposition home or self-care (01) ==
LOC: CC.ED 04:08
DX: M25.551 Pain in right hip (principal); I10 Essential (primary) hypertension; M19.90 Unspecified osteoarthritis, unspecified site; E78.00 Pure hypercholesterolemia, unspecified; E11.9 Type 2 diabetes mellitus without complications; Z79.82 Long term (current) use of aspirin; Z79.899 Other long term (current) drug therapy; Z86.16 Personal history of COVID-19; Z90.49 Acquired absence of other specified parts of digestive tract
CPT/HCPCS: 96372; 99283; A9270-GY; J1885; J2360

== ENCOUNTER 2025-02-13 09:19 | Day surgery (SDC) | payer BC ==
[2025-02-13] MEDS ORDERED: Ketamine 200 MG/20 ML MDV ONE (09:55)
[2025-02-13] MEDS ORDERED: fentaNYL 50 MCG/ML SDV ONE (09:55)
[2025-02-13] MEDS ORDERED: Propofol 200 MG/20 ML SDV ONE (09:55)
[2025-02-13] MEDS ORDERED: Midazolam 1 MG/ML 2 ML SDV ONE (09:55)
[2025-02-13] MEDS: Lactated Ringers 1,000 ML IV SCH (10:00)
== END 2025-02-13 11:20 | disposition home or self-care (01) ==
LOC: CC.SDS 09:19
PROVIDERS: ATTEND Family Medicine
DX: Z12.11 Encounter for screening for malignant neoplasm of colon (principal); D12.5 Benign neoplasm of sigmoid colon; K57.30 Diverticulosis of large intestine without perforation or abscess without bleeding; E11.9 Type 2 diabetes mellitus without complications
CPT/HCPCS: 00811; J2250; J2704; J3010; J3490; J7120